=== PATIENT | male | born 1980 | race Caucasian/White ===

== ENCOUNTER 2018-03-28 11:59 | Outpatient (CLI) | payer OTHER ==
--- NOTE | 2018-03-28 15:14 | MRI Report ---
Reason: LOW BACK PAIN Procedure Date: 03/28/2018 Accession Number: [id number] / [id number] Procedure: MRI - Lumbar Spine W/O CPT Code: FULL RESULT: EXAM: MRI LUMBAR SPINE WITHOUT CONTRAST EXAM DATE: 03/28/2018 12:55 PM. CLINICAL HISTORY: Low back pain. Left leg tingling. COMPARISON: None. TECHNIQUE: Multiplanar, multisequence T1-weighted and fluid-sensitive sequences of the lumbar spine from T12 to S1 without contrast. Other: None. FINDINGS: Spinal Canal: The conus terminates at L1-L2. The conus medullaris and cauda equina are unremarkable. Alignment: No spondylolysis or spondylolisthesis. Minimal levoconvex asymmetric lower lumbar curve. Bone Marrow: Five [id number] lumbar vertebral bodies are assumed. No gross fractures or bone lesions. No bone marrow replacement. Disk Levels/Facets: T12-L1: Unremarkable. L1-L2: Unremarkable. L2-L3: Unremarkable. L3-L4: Unremarkable. L4-L5: No significant disk space narrowing. Shallow circumferential annular bulge and minimal facet arthropathy, but no stenosis or disk extrusion. L5-S1: Mild degenerative disk space narrowing and dehydration posteriorly. Small left posterior paracentral disk protrusion with annular fissure. No significant stenosis or focal nerve root compression. Unremarkable facets. Musculature: Normal. No edema or fatty atrophy. Other: None. IMPRESSION: Degenerative changes in the lumbar spine are mild but most prominent at L5-S1 where there is disk space narrowing and dehydration posteriorly and a shallow left posterior paracentral protrusion with annular fissure but no evidence for lumbar stenosis or focal nerve root compression. Comment: The following findings are so common in adults without low back pain that while we report their presence, they must be interpreted with caution and in the context of the clinical situation. (Reference Shelly et al, Spine 2001) Prevalence of findings in patients without low back pain: Disk degeneration (any evidence): 92% Disk desiccation/T2 signal loss: 83% Disk height loss: 56% Disk bulge: 64% Disk protrusion: 32% Annular tear/high intensity zone: 38% RADIA
== END 2018-03-28 12:00 | disposition home or self-care (01) ==
LOC: DI 11:59
DX: M51.27 Other intervertebral disc displacement, lumbosacral region (principal); M47.9 Spondylosis, unspecified; M51.37 Other intervertebral disc degeneration, lumbosacral region
CPT/HCPCS: 72148

== ENCOUNTER 2018-07-09 11:13 | Outpatient (CLI) | payer OTHER | END 2018-07-09 11:14 | disposition home or self-care (01) | LOC: SC 11:13 | PROVIDERS: ATTEND Internal Medicine Pulmonary Disease | DX: R06.83 Snoring (principal); R06.81 Apnea, not elsewhere classified; G47.8 Other sleep disorders; R41.89 Other symptoms and signs involving cognitive functions and awareness; G47.10 Hypersomnia, unspecified; R51 Headache | CPT/HCPCS: 99203; 99212 ==

== ENCOUNTER 2018-08-06 20:23 | Outpatient (CLI) | payer OTHER | END 2018-08-06 20:24 | disposition home or self-care (01) | LOC: SC 20:23 | PROVIDERS: ATTEND Internal Medicine Pulmonary Disease | DX: G47.61 Periodic limb movement disorder (principal); R06.83 Snoring | CPT/HCPCS: 95810 ==

== ENCOUNTER 2018-08-19 09:22 | Outpatient (CLI) | payer OTHER | END 2018-08-19 09:23 | disposition home or self-care (01) | LOC: SC 09:22 | PROVIDERS: ATTEND Internal Medicine Pulmonary Disease | DX: R06.83 Snoring (principal) | CPT/HCPCS: 99212; 99213 ==

== ENCOUNTER 2019-09-03 13:43 | Outpatient (CLI) | payer OTHER ==
--- NOTE | 2019-09-03 14:46 | MRI Report ---
PROCEDURE: Lumbar Spine W/O INDICATIONS: LOW BACK PAIN TECHNIQUE: Noncontrast sagittal T1 spin echo and T2 fast echo, sagittal STIR, axial T1 and T2 fast spin echo thr ough the lumbar spine. In cases with scoliosis, additional coronal T2 fast spin echo may be performe d. COMPARISON: 03/28/2018 MRI lumbar spine. FINDINGS: Image quality: Excellent. Alignment and Curvature: There is normal bony alignment. Bone Marrow: Marrow is of normal overall signal. No acute vertebral body compression fractures. Spinal Cord: Normal position and appearance of the conus. Visualized distal cord unremarkable. Paraspinous Soft Tissues: No paravertebral masses. T12-L1: Normal in appearance. L1-L2: Normal in appearance. L2-L3: Normal in appearance. L3-L4: Normal in appearance. L4-L5: Normal in appearance. L5-S1: Unchanged diffuse disc bulge with superimposed protrusion in the left subarticular and foramin al zones, again producing mild left subarticular zone and foraminal zone stenosis. No right neural fo raminal stenosis. IMPRESSION: 1. Unchanged L5-S1 disc bulge and protrusion producing mild left subarticular zone and neural foramin al stenosis without mass effect upon the adjacent nerve roots. Reviewed by: Filemon Min MD on 09/03/2019 2:45 PM PDT Approved by: Filemon Min MD on 09/03/2019 2:45 PM PDT Station ID: [id number]
== END 2019-09-03 13:44 | disposition home or self-care (01) ==
LOC: DI 13:43
PROVIDERS: ATTEND Student in an Organized Health Care Education/Training Program
DX: M51.27 Other intervertebral disc displacement, lumbosacral region (principal)
CPT/HCPCS: 72148

== ENCOUNTER 2020-05-07 07:36 | Outpatient (CLI) | payer OTHER ==
--- NOTE | 2020-05-07 09:33 | MRI Report ---
PROCEDURE: Wrist RT W/O INDICATIONS: PAIN IN R WRIST TECHNIQUE: Noncontrast coronal proton density fast spin echo and T2 fast spin echo with fat saturation; coronal 3-D gradient echo, axial T1 spin echo and T2 fast spin echo with fat saturation, sagittal T1 spin ech o through the wrist. COMPARISON: None. FINDINGS: Image quality: Excellent. Bones and cartilage: The carpal bones are normally aligned. No bone marrow contusions or fractures. No evidence for avascular necrosis. Scattered subchondral sclerosis and spurring. Overlying cart ilage surfaces appear normal. Carpal ligaments: The scapholunate and lunotriquetral ligaments appear intact. In the absence of in tra-articular contrast, the extrinsic carpal ligaments are not well identified. On sagittal images, the pisohamate ligament appears intact. Triangular fibrocartilage complex: The triangular fibrocartilage appears intact. The adjacent menis marcelino homolog appears normal in the absence of intra-articular contrast. The extensor carpi ulnaris te ndon is normal in location and morphology. Tendons and soft tissues: Median nerve appears unremarkable. There is mild T2 hyperintensity/edema ash rrounding the flexor tendons for example image 7/501. No definite bowing appearance of the flexor ret inaculum. The ulnar nerve appears normal within Guyon?s canal. All six extensor tendon compartments demonstrat e normal morphology, without pathologic tendon sheath fluid. No soft tissue ganglion cysts. IMPRESSION: Mild T2 hyperintensity in the region of the flexor tendons within the carpal tunnel rais ing possibility of mild carpal tunnel syndrome although please correlate clinically since the MR appe arance is subtle, and technically nonspecific. Reviewed by: Mando Mesa MD on 05/07/2020 9:31 AM PST Approved by: Mando Mesa MD on 05/07/2020 9:31 AM PST Station ID: [id number]
== END 2020-05-07 07:37 | disposition home or self-care (01) ==
LOC: DI 07:36
DX: R93.6 Abnormal findings on diagnostic imaging of limbs (principal)